=== PATIENT | male | born 1995 | race Caucasian/White ===

== ENCOUNTER 2024-08-16 16:57 | Emergency (ER) | payer OTHER, SELFPAY ==
--- NOTE | ~2024-08-16 | XR_ITS ---
EXAMINATION: XR chest 2V Exam Date/Time: 08/16/2024 17:18 COMMERCIAL GREEN RETROFIT ARCHITECT HISTORY: chest pain X 1 week Comparison: None. RESULT: Lines, tubes, and devices: None. Lungs and pleura: Clear. Cardiomediastinal silhouette: Stable. Other: No acute upper abdominal finding. Mild anterior wedge deformity of multiple vertebral bodies at the thoracolumbar junction. IMPRESSION: No acute cardiopulmonary process. Mild multilevel anterior wedge deformity at the thoracolumbar junction, presumably physiologic, unles s accompanied by acute pain/tenderness. Reviewed, dictated and finalized at location K. ERCIAL GREEN RETROFIT ARCHITECT IMPRESSION: No acute cardiopulmonary process. Mild multilevel anterior wedge deformity at the thoracolumbar junction, presuma carie physiologic, unless accompanied by acute pain/tenderness.
--- NOTE | 2024-08-16 16:59 | ECG_ITS ---
Test Date: 2024-08-16 17:08:25 Measurements Intervals [place] Rate: 95 P: 2 [place]: 116 QRS: 4 QRSD: 93 T: 26 QT: 331 QTc: 417 Interpretive Statements SINUS RHYTHM CONSIDER ANTERIOR INFARCT, AGE INDETERMINATE BASELINE ARTIFACT- I, II, III, AVR ABNORMAL ECG No previous ECG available for comparison Electronically Signed On 08-16-2024 19:06:52 EGG SETTER by Santi Samuels D.O.
[2024-08-16 17:01] VITALS: BP 164/93; PULSE 84; RESP 16; TEMP 36.9; O2SAT 100
--- NOTE | 2024-08-16 17:01 | ED.CHESTPAIN ---
HPI - Chest Pain General Chief Complaint: Chest Pain Stated Complaint: chest discomfort Focused HPI: 28 y/o M presents to the ED for intermittent chest pain x1 week. patient states he gets a dull pain in his left chest wall that will occur for less than a minute and then spontaneously resolved. He cannot identify any aggravating or alleviating factors. He also states that he has noticed his heart skips beats. He denies cough or congestion, shortness of breath, lower extremity edema, hemoptysis, history of VTE, recent surgeries or hospitalizations, nausea or vomiting. He does not smoke. Denies alcohol or drug use. He cannot identify any aggravating or alleviating factors. GENERAL: Well-appearing, well-nourished, and in no acute distress. HEAD: Normocephalic, atraumatic. CHEST: Clear to auscultation. ?No respiratory distress. HEART: Regular rate and rhythm.? NEURO: ?Alert and oriented x3. Patient screened in triage and initial orders placed.? ?Additional care and disposition to be based upon?diagnostic testing and treatment. Related Data Allergies Allergy/AdvReac Type Severity Reaction Status Date / Time ibuprofen Allergy Unknown Hives / Verified 12/04/18 16:46 Red Face Course Vital Signs Vital signs: Vital Signs Temperature 98.5 F 08/16/24 17:01 Pulse Rate 84 08/16/24 17:01 Respiratory Rate 16 08/16/24 17:01 Blood Pressure 164/93 H 08/16/24 17:01 Pulse Oximetry 100 08/16/24 17:01 Oxygen Delivery Room Air 08/16/24 17:01 Temperature 98.5 F 08/16/24 17:01 Pulse Rate 84 08/16/24 17:01 Respiratory Rate 16 08/16/24 17:01 Blood Pressure 164/93 H 08/16/24 17:01 Pulse Oximetry 100 08/16/24 17:01 Oxygen Delivery Room Air 08/16/24 17:01 MDM - Chest Pain Lab Data 08/16/24 17:13 08/16/24 17:13 Labs: Lab Results 08/16/24 Range/Units 17:13 WBC 7.1 (4.5-10.0) K/mm3 RBC 5.22 (4.6-6.20) M/mm3 Hgb 15.6 (14.0-18.0) g/dL Hct 45.9 (42.0-52.0) % MCV 87.9 (80-100) fl MCH 29.9 (26-34) pg MCHC 34.0 (32-36) g/dl RDW 11.9 (11.5-14.5) % Plt Count 234 (150-375) k/mm3 MPV 9.7 (7.4-10.4) fl Immature Gran % (Auto) 0.1 (0-0.5) % Neut % (Auto) 45.9 (45.5-73.1) % Lymph % (Auto) 38.1 (18.3-44.2) % [place] % (Auto) 7.8 (2.6-8.5) % Eos % (Auto) 7.5 H (0-4.4) % Baso % (Auto) 0.6 (0.2-1.2) % Lymph # (Auto) 2.69 (0.9-3.2) K/mm3 [place] # (Auto) 0.6 (0.1-0.6) K/mm3 Eos # (Auto) 0.5 H (0-0.3) K/mm3 Baso # (Auto) 0.0 (0.0-0.1) K/mm3 Abs Immat Gran (auto) 0.01 (0.00-0.031) K/mm3 Absolute Neuts (auto) 3.2 (1.3-6.7) K/mm3 Absolute Nucleated RBC 0.000 (0.0-0.012) K/mm3 Nucleated RBC % 0.0 (0.0-0.2) % PT 12.2 (11.1-14.7) Seconds INR 0.9 APTT 26.5 (22.3-36.8) Seconds Sodium 139 (137-145) mmol/L Potassium 3.8 (3.4-5.0) mmol/L Chloride 104 (98-107) mmol/L Carbon Dioxide 25 (22-30) mmol/L Anion Gap 10 (4-12) mmol/L BUN 19 (9-20) mg/dL Creatinine 0.93 (0.7-1.3) mg/dL Estim Creat Clear Calc 115 ml/min Estimated GFR > 60 (59 - ) Glucose 93 (65-110) mg/dL Calcium 9.3 (8.4-10.2) mg/dL Magnesium 2.0 (1.6-2.3) mg/dL Total Bilirubin 0.5 (0.2-1.3) mg/dL AST 34 (17-59) U/L ALT 48 (6-50) U/L Alkaline Phosphatase 50 (38-126) U/L Troponin I < 0.012 (0.000-0.034) ng/mL NT-Pro-B Natriuret Pep < 20 (19.9-100) pg/mL Total Protein 8.0 (6.3-8.2) g/dL Albumin 4.8 (3.5-5.1) g/dL Lipase 164 (23-300) U/L Discharge Plan Discharge Clinical Impression: Atypical chest pain Patient Disposition: Elopement After Seen by Prov Condition: Stable Patient Language: Greek Follow-up/Referrals: Harms,David Dawson M.D. [Primary Care Provider] -
[2024-08-16 17:19] LABS: Basophils Percent Auto 0.6 % (0.2-1.2); Eosinophils Absolute Auto 0.5 K/mm3 (0-0.3); Eosinophils Percent Auto 7.5 % (0-4.4); Hematocrit 45.9 % (42.0-52.0); Hemoglobin 15.6 g/dL (14.0-18.0); Immature Granulocyte Absolute 0.01 K/mm3 (0.00-0.031); Immature Granulocyte Percent A 0.1 % (0-0.5); Lymphocytes Absolute Auto 2.69 K/mm3 (0.9-3.2); Lymphocytes Percent Auto 38.1 % (18.3-44.2); Mean Corpuscular Hemoglobin 29.9 pg (26-34); Mean Corpuscular Volume 87.9 fl (80-100); Mean Platelet Volume 9.7 fl (7.4-10.4); Monocytes Absolute Auto 0.6 K/mm3 (0.1-0.6); Monocytes Percent Auto 7.8 % (2.6-8.5); Neutrophils Absolute Auto 3.2 K/mm3 (1.3-6.7); Neutrophils Percent Auto 45.9 % (45.5-73.1); Platelet Count Result 234 k/mm3 (150-375); Red Blood Count 5.22 M/mm3 (4.6-6.20); Red Cell Distribution Width 11.9 % (11.5-14.5); White Blood Count 7.1 K/mm3 (4.5-10.0)
[2024-08-16 17:30] LABS: INR 0.9; Prothrombin Time 12.2 Seconds (11.1-14.7)
[2024-08-16 17:31] LABS: Partial Thromboplastin Time 26.5 Seconds (22.3-36.8)
[2024-08-16 17:32] LABS: Alanine Aminotransferase 48 U/L (6-50); Albumin Level 4.8 g/dL (3.5-5.1); Alkaline Phosphatase 50 U/L (38-126); Anion Gap 10 mmol/L (4-12); Aspartate Amino Transferase 34 U/L (17-59); Bilirubin,Total 0.5 mg/dL (0.2-1.3); Blood Urea Nitrogen 19 mg/dL (9-20); Calcium 9.3 mg/dL (8.4-10.2); Carbon Dioxide 25 mmol/L (22-30); Chloride 104 mmol/L (98-107); Estimated CRCL calculation 115 ml/min; Estimated Glomerular Filt Rate > 60; Glucose 93 mg/dL (65-110); Lipase 164 U/L (23-300); Potassium 3.8 mmol/L (3.4-5.0); Sodium 139 mmol/L (137-145)
[2024-08-16 17:43] LABS: NT Pro B Type Natriuretic Pept < 20 pg/mL (19.9-100); Troponin I < 0.012 ng/mL (0.000-0.034)
--- OUTSIDE RECORDS SUMMARY | 2024-08-16 18:47 | XMS_ITS | Clinical Summary ---
Author Organization [facility] [address] [facility] lt Address [address] [place] [address] Care Team Providers Care Remelt Worker Name Role Phone David Preston MD Primary Care Provider +1 [phone] Allergies Active Allergy Reactions Criticality Noted Date Comments Ibuprofen Hives Medium 01/27/2019 Medications hydrocortisone (ANUSOL-HC) 2.5 % rectal cream For hemorrhoid management, squeeze small amount into rectum using internal applicator and also apply small amount externally to rectum up to twice daily as needed. 28 g 5 3 Active Active Problems Problem Noted Date Diagnosed Date Diverticular disease 09/30/2022 BRBPR (bright red blood per rectum) 09/30/2022 Mucus in stool 09/30/2022 Family history of colon cancer 09/30/2022 Rectal bleeding 03/06/2021 Assessment & Plan (03/06/2021 10:35 AM CDT): With the prior history of having something externally come out and slowly resolved as well as with seen something with him varying down he clearly has some small internal hemorrhoids. We also discussed however given his history of diverticulitis that the diverticulosis could also bleed. We have discussed good bowel habits such as avoiding straining and not sitting too long. We have discussed increasing fiber in his diet as well. Given the small nature of these hemorrhoids either being a grade 1 or 2 conservative means will be attempted 1st. If these fail we have discussed banding or IRC to addressed. At that time we would likely also do at least a flexible sigmoidoscopy to evaluate the sigmoid colon to see how extensive the diverticular disease is and to see if there is any stigmata of bleeding. He will call us back if anything changes. BMI 33.0-33.9,adult 10/12/2020 Overview (10/12/2020): Reviwed goal of 150min/week aerobic exercsie. Reviewed healthy food choices. Abdominal burning sensation in left upper quadra nt 11/11/2019 Assessment & Plan (11/11/2019 9:30 AM CDT): Pt says he notices this flares up when he has tomatoes, otherwise, is not sure if this is correlated with certain foods. Denies correlation with BM. No black tarry stools or N/V. Denies any use of NSAID's. These symptoms have been intermittently occuring for about 1 year. Pt says he gets on/off LUQ burning that is usually associated with burning in chest and throat. He was placed on omeprazole 40mg for 6 weeks by PCP which helped resolve these symptoms. He stopped this medication and about 1 month later, started to have symptoms again. He has not had this pain for a few weeks. Will place patient on pantoprazole 40mg for 8 weeks and sucralfate for 2 weeks. Suspecting may have some GERD and gastritis. We also discussed importance of following the GERD diet and he was given handout on this. If symptoms persist after we f/u and he has completed this medication, we will consider EGD. GERD (gastroesophageal reflux disease) 0 Assessment & Plan (11/11/2019 9:29 AM CDT): Symptoms occurring almost daily. Pt intermittently has LUQ abdominal burning that can last a couple of days. He takes TUMS and helps relieve this pain. Omeprazole helped to completely resolve this and his heartburn symptoms. Discussed importance of following GERD diet and given handout on this. Closed fracture of distal end of radius 12/13/19 09 Encounters Date Type Department Care Team Description 08/16/2024 Nurse Triage [facility] [address] [address] David Preston MD from Last 3 Months Immunizations Immunization Administration Dates Next Due Influenza, Quadrivalent, Spl it, Intramuscular 04/01/2012 Influenza, Unspecified 03/23/2020,2018,06/23/2018(Defer red: Patient Refused),06/24/2016(Deferred: Patient Refused) TD Preservative Free 10/10/2015 Surgical History Surgery Date Site/Laterality Comments NO PAST SURGERIES COLONOSCOPY 11/12/2022 Medical History Medical History Date Comments Anxiety disorder 09/2015 Anxiety GERD (gastroesophageal reflux disease) Family History Medical History Relation Name Comments Other Father 2 Alive and well; Other Mother 2 Alive and well; Relation Name Status Comments Father 1 Alive Father 2 Mother 1 Alive Mother 2 Social History Tobacco Use Types Packs/Day Years Used Date Smoking Tobacco: Never Smokeless Tobacco: Former Tobacco Cessation:Counseling Given: Not Answered Alcohol Use Standard Drinks/Week Comments Yes 0 (1 standard drink = 0.6 oz pur e alcohol) AUDIT-C Answer Date Recorded Q1: How often do you have a drink containing alc ohol? 2-4 times a month 09/30/2022 Q2: How many drinks containi ng alcohol do you have on a typical day when you are drinking? 7 to 9 09/30/2022 Q3: How often do you have si x or more drinks on one occasion? 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 Gender Identity Male 10/12/2020 10:15 AM CDT Sexual Orientation Straight 10/12/2020 10 :15 AM CDT Obstetrics History Last Filed Vital Signs Vital Sign Reading Time Taken Comments Blood Pressure 133/79 11/12/2022 2:50 PM CDT Pulse 77 11/12/2022 2:50 PM CDT Temperature 36.9 C (98.5 F) 11/12/2022 2:50 PM CDT Respiratory Rate 16 11/12/2022 2:50 PM CDT Oxygen Saturation 100% 11/12/2022 2:50 PM CDT Inhaled Oxygen Concentration - - Weight 99.3 kg (219 lb) 11/12/2022 12:03 PM CDT Height 175.3 cm (5' 9 ) 11/12/2022 12:03 PM CDT Body Mass Index 32.34 11/12/2022 12:03 PM CDT Plan of Treatment Health Maintenance Due Date Last Done Comments Hepatitis C Screening 1993 Varicella Vaccines (1 of 2 - 13+ 2-dose series) 2006 HPV Vaccines (2 - Male 3-dose series) 08/08/2010 07/11/2010 Regular Well Visit/Exam 18-64 08/23/2011 Depression Screening 10/12/2021 10/12/2020, 09/19/2020, 01/27/2019, Additional history exists Influenza Vaccine (#1) 2024 , 03/23/2019, 04/01/2012 DTaP/Tdap/Td Vaccine (9 - Td or Tdap) 10/16/2030 10/16/2020, 10/10/2015, 01/21/2006, Additional history exists Hepatitis B Screening Completed 03/19/1995 , 10/31/1994, 02/14/1994 Pneumococcal vaccine <65 Aged Out No longer eligible based on patient's age to complete this topic Insurance [facility]US [facility] CHOICE PLUS [facility] CHOICE PLUS Advance Directives For more information, please contact: [phone] * Full Code (Latest Code Status on File) Date Activated Date Inactivated Comments 11/12/2022 11:55 AM 11/12/2022 7:17 PM * Full Code Date Activated Date Inactivated Comments 11/12/2022 11:54 AM 11/12/2022 11:55 AM Care Teams Remelt Worker Relationship Specialty Start Date End Date David Preston MD [address] [place] [address] PCP - General 10/19/15
--- OUTSIDE RECORDS SUMMARY | 2024-08-16 18:47 | XMS_ITS | Clinical Summary ---
Author Organization [facility] Address [address] [place] [address] Phone Care Team Providers Care Lime Sludge Kiln Operator Name Role Phone David Preston MD Primary Care Provider +1 [phone] Allergies Active Allergy Reactions Criticality Noted Date Comments Ibuprofen Hives 10/16/2020 Medications No known medications Immunizations Immunization Administration Dates Next Due TDAP Vaccine 10/16/2020 Social History Tobacco Use Types Packs/Day Years Used Date Smoking Tobacco: Never Smokeless Tobacco: Never Alcohol Use Standard Drinks/Week Comments Not Currently 0 (1 standard drink = 0.6 oz pur e alcohol) Sex and Gender Information Value Date Recorded Sex Assigned at Not on file Legal Sex Male 11:21 PM CDT Gender Identity Not on file Sexual Orientation Not on file Last Filed Vital Signs Vital Sign Reading Time Taken Comments Blood Pressure 134/74 10/16/2020 12:31 PM CDT Pulse 81 10/16/2020 12:31 PM CDT Temperature 36.6 C (97.8 F) 10/16/2020 10:11 AM CDT Respiratory Rate 21 10/16/2020 12:31 PM CDT Oxygen Saturation 100% 10/16/2020 12:31 PM CDT Inhaled Oxygen Concentration - - Weight 99.8 kg (220 lb) 10/16/2020 10:11 AM CDT Height 172.7 cm (5' 8 ) 10/16/2020 10:11 AM CDT Body Mass Index 33.45 10/16/2020 10:11 AM CDT Plan of Treatment Health Maintenance Due Date Last Done Comments Hepatitis C Virus (HCV) Screening 1993 Influenza Immunization (#1) 2024 06/2019, 03/23/2019, 04/01/2012 SARS-COV-2 Immunization (2023-25 season) 2024 Respiratory Syncytial Virus (RSV) Immunization (Adult) (1 - 1-dose 75+ series) 2068 Hepatitis B Immunization Completed 995, 10/31/1994, 02/14/1994 Meningococcal Immunization (ACWY) Aged Out 01/28/2007 No longer eligible based on patient's age to complete this topic DTaP/Tdap/Td Immunization Discontinued 2020, 01/21/2006, 02/06/2005, Additional history exists Pneumococcal Immunization Combined Aged Out No longer eligible based on patient's age to complete this topic Rotavirus Immunization Aged Out No lo nger eligible based on patient's age to complete this topic Insurance [id number] Care Teams Lime Sludge Kiln Operator Relationship Specialty Start Date End Date [place] [address] PCP - General Internal Medicine 10/16/20
--- OUTSIDE RECORDS SUMMARY | 2024-08-16 18:47 | XMS_ITS | Referral Summary ---
Author Organization [facility] [place] [address] [facility] lt Address [address] [place] [address] Care Team Providers Care Spinneret Cleaner Name Role Phone David Preston MD Primary Care Provider [phone] [phone] Encounters Date Type Department Care Team Description 08/16/2024 Nurse Triage [facility] [place] [address] [place] [address] David Preston MD from Last 3 Months Allergies Active Allergy Reactions Criticality Noted Date Comments Ibuprofen Hives Medium 01/27/2019 Medications hydrocortisone (ANUSOL-HC) 2.5 % rectal cream For hemorrhoid management, squeeze small amount into rectum using internal applicator and also apply small amount externally to rectum up to twice daily as needed. 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 Gender Identity Male 10/12/2020 10:15 AM CDT Sexual Orientation Straight 10/12/2020 10 :15 AM CDT Last Filed Vital Signs Vital Sign Reading [...] 11/12/2022 12:03 PM CDT Plan of Treatment Not on file Insurance Advance Directives For more information, please contact: [phone] * Full Code (Latest Code Status on File) Date Activated Date Inactivated Comments 11/12/2022 11:55 AM 11/12/2022 7:17 PM * Full Code Date Activated Date Inactivated Comments 11/12/2022 11:54 AM 11/12/2022 11:55 AM Care Teams Spinneret Cleaner Relationship Specialty Start Date End Date David Preston MD [address] [place] [address] PCP - General 10/19/15
--- OUTSIDE RECORDS SUMMARY | 2024-08-16 18:47 | XMS_ITS | Encounter Summary ---
Author Organization [facility] Healthcare Address [address] [place] [address] Care Team Providers Care Gas Charger Name Role Phone David Preston MD Primary Care Provider [phone] [phone] Reason for Visit * Reason Onset Date Comments Chest Pain 08/16/2024 Encounter Details Date Type Department Care Team (Late st Contact Info) Description 08/16/2024 Nurse Triage [facility] [address] [place] [address] David Preston MD [address] [place] [address] Social History Tobacco Use Types Packs/Day Years Used Date Smoking Tobacco: Never Smokeless Tobacco: Former Alcohol Use Standard Drinks/Week Comments Yes 0 [...] on file 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 Pt notes having covid 3 weeks ago and now having intermittent mid sternal non radiating CP. Pt also reports it feels like at times he has a pause in his heartbeat. Pt notes this happens once a day lasting about one minute. Pt notes fatigue and lightheadedness with episodes. Pt denies abdominal pain, SOB, N/V or unusual sweating. Pt advised to be seen and agrees to [place] ED. Reason for Disposition Patient sounds very sick or weak to the triager Protocols used: Chest Sohd-Zsisz-GU ET MOLDER * Telephone Encounter - Yue Sanchez RN - 08/16/2024 4:12 PM AIRSET MOLDER Regarding: chest discomfort, mild pain in pain ----- Message from Galina Crandall sent at 08/16/2024 4:11 PM AIRSET MOLDER ----- Symptom Based Call Chief Complaint(s): chest discomfort, mild pain in pain Duration: 1 week What type of symptom(s) is the patient experiencing? Red Flag. Is the patient concerned they are experiencing a medical emergency requiring an ambulance? No Additional Comments: Pt had Covid 3 weeks ago. Pt says this is not his normal Palpitations. Does message need to be routed? Yes-Action Needed ET MOLDER documented in this encounter Plan of Treatment Not on file documented as of this encounter Visit Diagnoses Not on filedocumented in this encounter Care Teams Gas Charger Relationship Specialty Start Date End Date David Preston MD [address] [place] [address] PCP - General 10/19/15 documented as of this encounter
--- OUTSIDE RECORDS SUMMARY | 2024-08-17 00:45 | XMS_ITS | Referral Summary ---
Author Organization [facility] [place] [address] 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
--- OUTSIDE RECORDS SUMMARY | 2024-08-17 00:45 | XMS_ITS | Clinical Summary ---
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 Gender Identity Male 10/12/2020 10:15 AM CDT [...] to complete this topic Insurance [facility] Address: [place] [address] [facility] H[facility]/PPO Address: [address] [place], [place] [id number] [facility] H[facility]/PPO Address: [address] [place] [address] Advance Directives For more information, please contact: [phone] * Full Code (Latest Code Status on File) Date Activated Date Inactivated Comments 11/12/2022 11:55 AM 11/12/2022 7:17 PM * Full Code Date Activated Date Inactivated Comments 11/12/2022 11:54 AM 11/12/2022 11:55 AM Care Teams Speech Therapy Assistant Relationship Specialty Start Date End Date David Preston MD [address] [place] [address] PCP - General 10/19/15
--- OUTSIDE RECORDS SUMMARY | 2024-08-17 00:45 | XMS_ITS | Clinical Summary ---
Author Organization [facility] Address [address] [place] [address] Phone Care Team Providers Care Registered Sales Assistant Name Role Phone David Preston MD Primary Care Provider +1 -[phone] Allergies Active Allergy Reactions Criticality Noted Date [...] patient's age to complete this topic Insurance [id number] Care Teams Registered Sales Assistant Relationship Specialty Start Date End [place] [address] PCP - General Internal Medicine 10/16/20
--- OUTSIDE RECORDS SUMMARY | 2024-08-17 00:45 | XMS_ITS | Encounter Summary ---
Author Organization [facility] Healthcare Address [address] [place] [address] Care Team Providers Care Driver Examiner Name Role Phone David Preston MD Primary Care Provider [phone] -[phone] Reason for Visit * Reason Onset Date Comments Chest Pain 08/16/2024 Encounter Details Date Type Department Care Team (Late st Contact Info) Description 08/16/2024 Nurse Triage [facility] [address] [place] [address] David Preston MD [address] [place] [address] Social History Tobacco Use Types [...] on file Legal Sex Male 7:34 PM CARPET LAYER Gender Identity Male 10/12/2020 10:15 AM CDT Sexual Orientation Straight 10/12/2020 10 :15 AM CDT documented as of this encounter Miscellaneous Notes * Telephone Encounter - Yue Sanchez RN - 08/16/2024 4:19 PM CARPET LAYER Pt calls into gaming dealer after having one week of symptoms. Pt [...] advised to be seen and agrees to [place] ED. Reason for Disposition Patient sounds very sick or weak to the triager Protocols used: Chest Vali-Qhoqq-NV ET LAYER * Telephone Encounter - Yue Sanchez RN - 08/16/2024 4:12 PM CARPET LAYER Regarding: chest discomfort, mild pain in pain ----- Message from Galina Crandall sent at 08/16/2024 4:11 PM CARPET LAYER ----- Symptom Based Call Chief Complaint(s): chest [...] need to be routed? Yes-Action Needed ET LAYER documented in this encounter Plan of Treatment Not on file documented as of this encounter Visit Diagnoses Not on filedocumented in this encounter Care Teams Driver Examiner Relationship Specialty Start Date End Date David Preston MD [address] [place] [address] PCP - General 10/19/15 documented as of this encounter
== END 2024-08-17 00:27 | disposition left against medical advice (07) ==
LOC: ANHED 08-17 00:43
PROVIDERS: Emergency Provider Physician Assistant; PCP Family Medicine
DX: R07.89 Other chest pain (principal); R94.31 Abnormal electrocardiogram [ECG] [EKG]
CPT/HCPCS: 36415; 71046; 80053; 83690; 83735; 83880; 84484; 85025; 85610; 85730; 93005; 99284